=== PATIENT | male | born 1995 | race African-American/Black ===

== ENCOUNTER 2020-09-06 00:58 | Emergency (ER) | payer OTHER ==
[~2020-09-06] VITALS: Ht 175.3 cm; Wt 80.0 kg
[2020-09-06] MEDS ORDERED: IBUPROFEN 600 MG TABLET PO ONE (02:15)
[2020-09-06] MEDS ORDERED: ACETAMINOPHEN 500 MG TABLET PO ONE (02:15)
[2020-09-06 03:10] VITALS: BP 145/95
== END 2020-09-06 03:43 ==
LOC: EMS 01:00
DX: S83.92XA Sprain of unspecified site of left knee, initial encounter (principal); W19.XXXA Unspecified fall, initial encounter; Y93.39 Activity, other involving climbing, rappelling and jumping off; Y92.89 Other specified places as the place of occurrence of the external cause; Y99.8 Other external cause status
CPT/HCPCS: 99283